=== PATIENT | male | born 1970 | race Two or more races ===

== ENCOUNTER 2023-02-07 19:22 | Emergency (ER) | payer BC, OTHER ==
[~2023-02-07] VITALS: Ht 190.5 cm; Wt 112.8 kg
[2023-02-07 19:46] VITALS: BP 144/86
[2023-02-07] MEDS ORDERED: ONDANSETRON ODT 4 MG TAB PO ONE (20:00)
[2023-02-07 20:23] LABS: Basophils # (auto) 0.1 10 ^3/uL (0-0.2); Basophils % (auto) 0.4 % (0.0-2.0); Eosinophils # (auto) 0 10 ^3/uL (0-0.8); Eosinophils % (auto) 0.1 % (0.0-7.0); Hematocrit 46.8 % (41.0-53.0); Hemoglobin 15.6 g/dL (13.5-17.5); Lymphocytes % (auto) 6.6 % (10.0-50.0); Mean Corpuscular Hemoglobin 30.5 pg (28.0-32.0); Mean Corpuscular Hgb Conc. 33.4 g/dL (32.0-36.0); Mean Corpuscular Volume 91.3 fL (80.0-100.0); Monocytes # (auto) 0.5 10 ^3/uL (0-1.3); Monocytes % (auto) 3.2 % (0.0-12.0); Neutrophils # (auto) 13.3 10 ^3/uL (1.6-8.6); Neutrophils % (auto) 89.7 % (37.0-80.0); Red Blood Cells 5.13 10^6/uL (4.5-5.90); Red Cell Distribution Width 13.6 % (11.8-14.3); White Blood Cell 14.8 10^3/uL (4.4-10.8)
[2023-02-07 20:33] LABS: Urine Bacteria NONE SEEN /hpf (None Seen); Urine Blood Negative /uL (Negative); Urine Mucus FEW (None Seen); Urine WBC 1 /hpf (0 - 3)
[2023-02-07 20:40] LABS: INR 1.05 (0.9-1.15); Partial Thromboplastin Time 26.2 sec (24.6-33.4)
[2023-02-07 20:45] LABS: Albumin 4.5 g/dL (3.4-5.0); Calcium 9.5 mg/dL (8.5-10.1); Potassium 4.8 mmol/L (3.5-5.1)
[2023-02-07 20:50] LABS: Alcohol, Urine < 3.0 mg/dL (0-10); Amphetamine Screen, Urine NEGATIVE (NEGATIVE); Barbiturate Scree,Urine NEGATIVE (NEGATIVE); Benzodiazephine Screen, Urine NEGATIVE (NEGATIVE)
[2023-02-07 20:50] LABS: Total Protein 7.6 g/dL (6.4-8.2)
[2023-02-07 20:58] LABS: Cannabinoid Screen, Urine POSITIVE (NEGATIVE); Cocaine Screen, Urine NEGATIVE (NEGATIVE); Opiate Scree,Urine NEGATIVE (NEGATIVE); Phencyclidine Screen, Urine NEGATIVE (NEGATIVE)
[2023-02-07 22:23] LABS: BUN/Creatinine Ratio 14.3 (10.0-20.0)
== END 2023-02-07 21:24 | disposition left against medical advice (07) ==
LOC: ER 19:27
DX: R11.2 Nausea with vomiting, unspecified (principal); R63.4 Abnormal weight loss; Z53.21 Procedure and treatment not carried out due to patient leaving prior to being seen by health care provider
CPT/HCPCS: 36415; 74176; 80053; 80307; 81001; 83690; 85025; 85610; 85730; 99281; Q0162